=== PATIENT | male | born 1985 | race Caucasian/White ===

== ENCOUNTER 2018-02-16 07:31 | Emergency (ER) | payer OTHER ==
[~2018-02-16] VITALS: Ht 167.6 cm; Wt 61.2 kg
[~2018-02-16 07:31] MED LIST: CEPHALEXIN500 MG PO; DOXYCYCLINE HY100 M4 PO; DOXYCYCLINE MO100 MG PO; GABAPENTIN300 M2 PO; SUBOXONE 8 MG-1 EACH SL; TRAMADOL50 MG PO
[2018-02-16 07:36] VITALS: BP 126/80
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
[2018-02-16] MEDS ORDERED: ULTRAM50 M1 PO (09:31)
[2018-02-16] MEDS ORDERED: IBUPROFEN600 M1 PO (09:31)
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
== END 2018-02-16 09:43 ==
LOC: ERH 07:31
DX: S29.8XXA Other specified injuries of thorax, initial encounter (principal); V86.56XA Driver of dirt bike or motor/cross bike injured in nontraffic accident, initial encounter; Y92.9 Unspecified place or not applicable; Y93.9 Activity, unspecified
CPT/HCPCS: 71100-LT